=== PATIENT | female | born 1975 | race Caucasian/White ===

== ENCOUNTER 2020-09-28 20:38 | Emergency (ER) | payer OTHER ==
[~2020-09-28] VITALS: Ht 165.1 cm; Wt 76.0 kg
--- NOTE | 2020-09-28 21:03 | NUR ---
Patient comes in with complaints of a constant chest pressure/burning that started about 5 days ago. Patient talked to PMD about it and was started on predisone. Patient had COVID in Aug 2020. Patient states that she felt like she had recovered and this chest pressure is new, didn't have it even when she had COVID. Patient placed on cardiac tech, call light within reach. Provider at bedside
[2020-09-28] MEDS ORDERED: KETOROLAC 30 MG/1 ML ONE (21:12)
[2020-09-28 21:27] LABS: BASOPHILS % (AUTO) 0 % (0-1); EOSINOPHILS % (AUTO) 0 % (1-7); LYMPHOCYTES % (AUTO) 14 % (22-44); MEAN CORPUSCULAR HEMOGLOBIN 29.4 pg (27.0-34.8); MEAN CORPUSCULAR HGB CONC 32.8 g/dL (32.4-35.8); MEAN PLATELET VOLUME 9.1 fL (7.4-10.4); MONOCYTES % (AUTO) 9 % (2-9); NEUTROPHILS % (AUTO) 76 % (42-75); PLATELET COUNT 215 x10^3/uL (130-400); RED BLOOD COUNT 3.96 x10^6/uL (3.82-5.3); RED CELL DISTRIBUTION WIDTH 14.2 % (9.6-15.2)
[2020-09-28 21:28] LABS: MD NO
[2020-09-28] MEDS ORDERED: KETOROLAC 30 MG/1 ML IM ONE (21:30)
[2020-09-28 21:39] LABS: ALANINE AMINOTRANSFERASE 29 U/L (12-78); ALBUMIN 3.6 g/dL (3.4-5.0); ANION GAP 2 mmol/L (5-15); CALCIUM 9.5 mg/dL (8.5-10.1); CHLORIDE 110 mmol/L (98-107); CREATININE 0.85 mg/dL (0.55-1.02)
[2020-09-28 21:43] LABS: ALKALINE PHOSPHATASE 62 U/L (45-117); BILIRUBIN,TOTAL 0.3 mg/dL (0.2-1.0); TOTAL PROTEIN 6.7 g/dL (6.4-8.2); TROPONIN I < 0.015 ng/mL (0.000-0.045)
[2020-09-28 22:27] VITALS: BP 130/65
== END 2020-09-28 22:29 | disposition home or self-care (01) ==
LOC: ED 21:34
DX: M94.0 Chondrocostal junction syndrome [Tietze] (principal); R07.89 Other chest pain
CPT/HCPCS: 36415; 71045; 80053; 84484; 85025; 85379; 93005; 96372; 99285; J1885

== ENCOUNTER 2020-10-04 21:47 | Emergency (ER) | payer OTHER ==
[~2020-10-04] VITALS: Ht 165.1 cm; Wt 75.0 kg
--- NOTE | 2020-10-04 22:00 | NUR ---
pt walked to room T2
--- NOTE | 2020-10-04 22:05 | NUR ---
MD jayesh hooper pt.
[2020-10-04 23:06] VITALS: BP 101/52
--- NOTE | 2020-10-04 23:07 | NUR ---
DISCHARGED PT FOR PRIMARY RN. PT IS A&O X4. VS STABLE. PT IS ABLE TO AMBULATE SAFELY. PT HAS A RIDE HOME FROM FAMILY.
== END 2020-10-04 23:09 | disposition home or self-care (01) ==
LOC: ED 22:30
DX: S06.0X9A Concussion with loss of consciousness of unspecified duration, initial encounter (principal); W01.0XXA Fall on same level from slipping, tripping and stumbling without subsequent striking against object, initial encounter; Y93.89 Activity, other specified; Y92.098 Other place in other non-institutional residence as the place of occurrence of the external cause; Y99.8 Other external cause status
CPT/HCPCS: 70450; 99284

== ENCOUNTER → 2020-10-19 | Outpatient (CLI) | payer OTHER ==
[~2020-10-19] MED LIST: OMNIPAQUE 350 MG/ML, 75ML BOTTLE ONE
== END | disposition home or self-care (01) ==
LOC: RAD 14:04
PROVIDERS: ATTEND Family Medicine
DX: J43.9 Emphysema, unspecified (principal); R06.02 Shortness of breath
CPT/HCPCS: 71275; Q9967

== ENCOUNTER 2021-01-11 20:32 | Emergency (ER) | payer OTHER ==
[2021-01-11 22:02] LABS: BASOPHILS % (AUTO) 1 % (0-1); EOSINOPHILS % (AUTO) 4 % (1-7); LYMPHOCYTES % (AUTO) 27 % (22-44); MEAN CORPUSCULAR HEMOGLOBIN 28.9 pg (27.0-34.8); MEAN CORPUSCULAR HGB CONC 32.9 g/dL (32.4-35.8); MEAN PLATELET VOLUME 9.2 fL (7.4-10.4); MONOCYTES % (AUTO) 14 % (2-9); NEUTROPHILS % (AUTO) 55 % (42-75); PLATELET COUNT 173 x10^3/uL (130-400); RED BLOOD COUNT 4.03 x10^6/uL (3.82-5.3); RED CELL DISTRIBUTION WIDTH 12.8 % (9.6-15.2)
[2021-01-11 22:11] LABS: ALBUMIN 3.7 g/dL (3.4-5.0); ANION GAP 5 mmol/L (5-15); CHLORIDE 109 mmol/L (98-107)
[2021-01-11 22:24] LABS: ALANINE AMINOTRANSFERASE 34 U/L (12-78); ALKALINE PHOSPHATASE 74 U/L (45-117); BILIRUBIN,TOTAL 0.2 mg/dL (0.2-1.0); CREATININE 0.68 mg/dL (0.55-1.02); TOTAL PROTEIN 6.7 g/dL (6.4-8.2); TROPONIN I < 0.015 ng/mL (0.000-0.045)
[2021-01-12 00:06] VITALS: BP 102/45
== END 2021-01-12 00:25 | disposition home or self-care (01) ==
LOC: ED 23:30
DX: R00.2 Palpitations (principal)
CPT/HCPCS: 36415; 71045; 80053; 83735; 84443; 84484; 85025; 93005; 99285